=== PATIENT | male | born 1995 | race Caucasian/White ===

== ENCOUNTER 2016-04-28 20:45 | Emergency (ER) | payer OTHER ==
[2016-04-28] MEDS ORDERED: Cyclobenzaprine TAB* 10 MG PO ONE (22:20)
[2016-04-28] MEDS ORDERED: Ibuprofen TAB* 600 MG PO ONE (22:20)
--- NOTE | 2016-04-28 22:26 | UC ---
Hip/Pelvis Pain - HPI Summary HPI Summary: 21 male presents with girlfriend complaining of left hip pain that began approximately 5 weeks ago after snowboarding. Patient states since then he has been snowboarding and strength training and it has repeatedly been hurting him. He has tried icing/heating, taking OTC pain relievers, and topical agents without any relief. Lateral motions, abducting and squatting causes him the worst pain. Denies numbness, tingling, difficulty breathing, chest pain, saddle anesthesia, loss of bowel/bladder function, and pain in the left hip, right knee /foot or back. He states he has a teammate who is going through the same thing and was told if he "keeps using his hip it can turn into a hernia due to weak muscles". Denies blunt trauma however he does fall a few times when snowboarding on the snow. States he thinks he twisted it during snowboarding 5 weeks ago. - History Of Current Complaint Stated Complaint: LT HIP PAIN Time Seen by Provider: 04/28/16 22:04 Hx Obtained From: Patient Onset/Duration: Sudden Onset, Lasting Weeks, Still Present Severity Initially: Moderate Severity Currently: Moderate Location: Discrete At: - right hip, Radiates To: - some radiation in his groin and buttocks, sometimes up in his abdomen Character Of Pain: Sharp, Dull, Aching, Throbbing Aggravating Factor(s): Movement Alleviating Factor(s): Rest, Position, Cold, OTC Medications Associated Signs And Symptoms: Positive: Negative - Allergies/Home Medications Allergies/Adverse Reactions: Allergies Allergy/AdvReac Type Severity Reaction Status Date / Time No Known Allergies Allergy Verified 04/28/16 22:32 Home Medications: Home Medications Ibuprofen TAB* [Advil TAB*] 400 mg PO Q6H PRN 04/28/16 [History Confirmed ] PMH/Surg Hx/FS Hx/Imm Hx - Family History Known Family History: Positive: None Review of Systems Constitutional: Negative Skin: Negative Eyes: Negative ENT: Negative Respiratory: Negative Cardiovascular: Negative Gastrointestinal: Negative Genitourinary: Negative Motor: Negative Neurovascular: Negative Musculoskeletal: Arthralgia, Myalgia - right hip Neurological: Negative Psychological: Negative All Other Systems Reviewed And Are Negative: Yes Physical Exam Triage Information Reviewed: Yes Appearance: Well-Appearing, No Pain Distress, Well-Nourished Vital Signs Reviewed: Yes Eyes: Positive: Conjunctiva Clear Neck: Positive: Supple, Nontender Respiratory: Positive: Chest non-tender, Lungs clear, Normal breath sounds, No respiratory distress Cardiovascular: Positive: RRR, No Murmur, Pulses Normal - 2+, Brisk Capillary Refill - <2 seconds Abdominal Exam: Normal Musculoskeletal: Positive: Strength Intact - causes pain at right hip 5/5 b/l, ROM Intact - full ROM however does cause him pain. worst with abduction of right hip. points to area of tenderness on anterior/lateral right hip., No Edema - no eccymosis, no deformity, crepitus, or step-off noted. sensation intact and skin intact. able to move toes, knees and ankle. no tenderness on palpation. Neurological Exam: Normal Neurological: Positive: Other: - patellar reflexes normal and intact. Psychological Exam: Normal Skin Exam: Normal Hip Injury Course/Dx - Course Course Of Treatment: due to REINA and length of symptoms an x-ray was not needed at this time. patient will be given muscle relaxers and ibuprofen to take for the next 5 days and told to rest. referral to ortho for further mri imaging and evaluation. - Differential Dx/Diagnosis Differential Diagnosis/HQI/PQRI: Arthritis, Contusion, Sprain, Strain, Other - labral tear Provider Diagnoses: right hip sprain/strain Discharge - Discharge Plan Condition: Stable Disposition: HOME Prescriptions: Cyclobenzaprine TAB* [Flexeril TAB*] 10 mg PO DAILY #12 tab Ibuprofen TAB* [Motrin TAB* 600 MG] 600 mg PO Q6H PRN #25 tab PRN Reason: Pain Patient Education Materials: Hip Sprain (ED) Forms: *Gen. Provider Communication, *Physical Education Release Referrals: Bernardino Stafford MD [Medical Doctor] - Additional Instructions: Take medication as prescribed for the next 5-7 days or while symptoms persist. Do not drive while taking muscle relaxer and take ibuprofen with food. Continue using ice/ heat and topical agents as needed. REST the area and refrain from physical activity until released by orthopedics. If symptoms worsen or new symptoms begin please return to or make an appointment with your primary care doctor. Addendum entered and electronically signed by Olivia Cash PA 04/30/16 22: 23: Addendum Addendum: diagnosis: muscular strain of right hip Addendum entered and electronically signed by Olivia Cash PA 05/01/16 10: 32: UC Addendum Addendum: Error of diagnosis FINAL DIAGNOSIS: Muscle strain of LEFT hip Addendum entered and electronically signed by Olivia Cash PA 05/01/16 10: 36: UC Addendum Addendum: HISTORY OF CURRENT COMPLAINT: discrete pain at LEFT hip with radiation to groin and gluteals ROS: LEFT HIP arlthralgia, myalgia with radiation PHYSICAL EXAM: Entire PE is for LEFT hip, not the right hip
[2016-04-28 22:31] VITALS: BP 126/76
== END 2016-04-28 22:52 | disposition home or self-care (01) ==
LOC: UCCORT 20:45
DX: S76.012A Strain of muscle, fascia and tendon of left hip, initial encounter (principal); X58.XXXA Exposure to other specified factors, initial encounter; Y93.23 Activity, snow (alpine) (downhill) skiing, snowboarding, sledding, tobogganing and snow tubing; Y92.9 Unspecified place or not applicable
CPT/HCPCS: 99202; A9270-GY; G0463

== ENCOUNTER 2016-07-07 11:29 | Emergency (ER) | payer OTHER ==
[2016-07-07 11:42] VITALS: BP 120/91
--- NOTE | 2016-07-07 12:38 | UC ---
Throat Pain/Nasal Markell HPI - HPI Summary HPI Summary: 21 male presents with complaints of sinus congestion, nasal congestion, headache and productive cough that began approximately 4 weeks ago. Patient has been trying to treat it symptomatically with OTC medication, Mucinex and Advil cold and sinus, however has not had any relief. Last dose was around 8am this morning. Patient started to experience left ear pain that began today, where it feels like he has water in his ear. Admits to upset stomach for mucus. States cough is worse in the morning and productive with green mucus like sputum. Denies any fever/chills, difficulty breathing, SOB, and chest pain. Denies PMHx. - History of Current Complaint Chief Complaint: UCRespiratory Stated Complaint: SINUS CONGESTION COUGH LEFT EAR Time Seen by Provider: 07/07/16 12:19 Hx Obtained From: Patient Onset/Duration: Sudden Onset, Lasting Weeks, Worse Since Severity: Moderate Cough: Sputum Appears - green/mucus like Associated Signs & Symptoms: Positive: Sinus Discomfort, Nasal Discharge - Allergies/Home Medications Allergies/Adverse Reactions: Allergies Allergy/AdvReac Type Severity Reaction Status Date / Time No Known Allergies Allergy Verified 07/07/16 11:35 Home Medications: Home Medications Guaifenesin/Pseudo 600/60(NF) [Mucinex D 600/60 (NF)] 1 tab PO Q12H PRN [History Confirmed 07/07/16] PMH/Surg Hx/FS Hx/Imm Hx Endocrine History Of: Denies: Diabetes Cardiovascular History Of: Denies: Hypertension Respiratory History Of: Denies: Asthma - Surgical History Surgical History: None - Family History Known Family History: Positive: None - Social History Alcohol Use: Occasionally Substance Use Type: None Smoking Status (MU): Former Smoker When Did the Patient Quit Smoking/Using Tobacco: 3-4 YRS - Immunization History Vaccination Up to Date: Yes Review of Systems Constitutional: Negative Skin: Negative Eyes: Drainage - clear ENT: Ear Ache, Nasal Discharge Respiratory: Cough - productive Cardiovascular: Negative Gastrointestinal: Other - nausea intermittently from mucuc Motor: Negative Musculoskeletal: Negative Neurological: Headache All Other Systems Reviewed And Are Negative: Yes Physical Exam Triage Information Reviewed: Yes Appearance: Well-Appearing - sounds congested upon speaking, No Pain Distress, Well-Nourished Vital Signs: Initial Vital Signs Temp 98.9 F 07/07/16 11:37 Pulse 73 04/17/17 11:37 Resp 16 07/07/16 11:37 BP 120/91 07/07/16 11:37 Pulse Ox 99 07/07/16 11:37 Vital Signs Reviewed: Yes Eyes: Positive: Conjunctiva Clear. Negative: Conjunctiva Inflamed, Discharge ENT: Positive: Normal ENT inspection, Hearing grossly normal, Pharynx normal - ppost nasal drip noted, Nasal congestion, Nasal drainage, TMs normal. Negative : Tonsillar swelling, Tonsillar exudate, Trismus, Muffled/hoarse voice Dental: Positive: Percussion Tenderness @ - maxillary bilateral. Negative: Cervical Lymphadenopathy Neck: Positive: Supple, Nontender Respiratory: Positive: Chest non-tender, Lungs clear, Normal breath sounds, No respiratory distress, No accessory muscle use. Negative: Stridor, Wheezing Cardiovascular: Positive: RRR, No Murmur, Pulses Normal Abdominal Exam: Normal Abdomen Description: Positive: Nontender, Soft Bowel Sounds: Positive: Present Musculoskeletal: Positive: Strength Intact, ROM Intact, No Edema Neurological: Positive: Alert Psychological Exam: Normal Skin Exam: Normal Throat Pain/Nasal Course/Dx - Course Course Of Treatment: due to length of symptoms, failure of OTC symptomatic treatment and PE findings patient will be treated for sinusitis with an antibioitic at this time. Also recommended saline nasal spray. Prescribed flonase. Fluids, rest and OTC medications as needed. Recommend antihistamine to help with effusion behind TM and complaint of itchy/watery eyes. Aware of worsening signs and symptoms to watch out for. - Differential Dx/Diagnosis Differential Diagnosis/HQI/PQRI: Influenza, Otitis Media, Pharyngitis, Sinusitis , Tonsillitis, URI, Other Provider Diagnoses: Sinusitis, L ear pain Discharge - Discharge Plan Condition: Stable Disposition: HOME Prescriptions: Amoxicillin/Clavulanate TAB* [Augmentin TAB 875*] 875 mg PO BID #20 tab Fluticasone NASAL SPRAY 50MCG* [Flonase NASAL SPRAY 50MCG*] 2 spray BOTH NARES DAILY #1 btl Patient Education Materials: Sinusitis (ED) Referrals: Non Staff,Doctor [Primary Care Provider] - Additional Instructions: Take medications as prescribed until entire dose is finished even if symptoms improve. Recommend taking probiotic pill or eating estonian yogurt in between doses to help replenish normal swathi. Use nasal spray twice in the first day and then once daily while symptoms persist. Use saline nasal spray multiple times daily, not at the same time as the flonase. Take OTC Mucinex/Antihistamine/Advil as needed. Antihistamine helps dry up mucus and fluid behind eardrum. Drink plenty of fluids and get plenty of rest. If symptoms worsen or do not improve please return. Follow up with PCP.
== END 2016-07-07 12:45 | disposition home or self-care (01) ==
LOC: UCCORT 11:29
DX: J32.9 Chronic sinusitis, unspecified (principal); H92.02 Otalgia, left ear; Z87.891 Personal history of nicotine dependence
CPT/HCPCS: 99212; G0463

== ENCOUNTER 2016-09-26 09:34 | Emergency (ER) | payer OTHER ==
[2016-09-26 09:42] VITALS: BP 120/75
--- NOTE | 2016-09-26 10:11 | RAD ---
HISTORY: Tender lateral and medial malleoli status post inversion injury of the left ankle COMPARISONS: None VIEWS: 3, Frontal, lateral, and oblique views of the left ankle FINDINGS: BONE DENSITY: Normal. BONES: There is no displaced fracture. JOINTS: There is no arthropathy. ALIGNMENT: There is no dislocation. SOFT TISSUES: Unremarkable. OTHER FINDINGS: None. IMPRESSION: NO ACUTE OSSEOUS INJURY. IF SYMPTOMS PERSIST, RECOMMEND REPEAT IMAGING.
--- NOTE | 2016-09-26 10:53 | UC ---
Lower Extremity/Ankle HPI - HPI Summary HPI Summary: pt inverted left ankle when he stepped off the curb into a pot hole about 20 minutes prior to encounter. no other new sx. pt does have pre-existing hip and knee pain. - History of Current Complaint Chief Complaint: UCLowerExtremity Stated Complaint: LEFT ANKLE INJURY Time Seen by Provider: 09/26/16 09:43 Hx Obtained From: Patient Onset/Duration: Sudden Onset, Lasting Minutes, Still Present Severity Initially: Moderate Severity Currently: Moderate Pain Intensity: 6 Aggravating Factor(s): Standing, Ambulation Alleviating Factor(s): Rest, Elevation Able to Bear Weight: Yes - Allergies/Home Medications Allergies/Adverse Reactions: Allergies Allergy/AdvReac Type Severity Reaction Status Date / Time No Known Allergies Allergy Verified 09/26/16 09:41 Home Medications: Home Medications Nutritional Supplements [Phenylade Essential Drink] 1 pow PO DAILY 09/26/16 [ History Confirmed 09/26/16] PMH/Surg Hx/FS Hx/Imm Hx Previously Healthy: Yes - Surgical History Surgical History: None - Family History Known Family History: Negative: Cardiac Disease, Hypertension, Diabetes - Social History Alcohol Use: Daily Alcohol Amount: 2 beers Substance Use Type: None Smoking Status (MU): Former Smoker When Did the Patient Quit Smoking/Using Tobacco: 3-4 YRS - Immunization History Vaccination Up to Date: Yes Review of Systems Constitutional: Negative Skin: Negative Respiratory: Negative Cardiovascular: Negative Musculoskeletal: Arthralgia Neurological: Negative Psychological: Negative All Other Systems Reviewed And Are Negative: Yes Physical Exam Triage Information Reviewed: Yes Appearance: Well-Appearing, No Pain Distress, Well-Nourished Vital Signs: Initial Vital Signs Temp 98.7 F 09/26/16 09:37 Pulse 78 09/26/16 09:37 Resp 14 09/26/16 09:37 BP 120/75 09/26/16 09:37 Pulse Ox 100 09/26/16 09:37 Vital Signs Reviewed: Yes Eyes: Positive: Conjunctiva Clear. Negative: Discharge ENT: Positive: Hearing grossly normal. Negative: Muffled/hoarse voice Neck: Positive: Supple Respiratory: Positive: Lungs clear, Normal breath sounds, No respiratory distress, No accessory muscle use Cardiovascular: Positive: RRR, No Murmur Musculoskeletal Exam: Normal Neurological: Positive: Alert, Muscle Tone Normal Psychological: Positive: Age Appropriate Behavior Skin: Positive: Other Lower Extremity Course/Dx - Differential Dx/Diagnosis Differential Diagnosis/HQI/PQRI: Contusion, Fracture (Closed), Sprain Provider Diagnoses: ankle sprain Discharge - Discharge Plan Condition: Stable Disposition: HOME Patient Education Materials: Ankle Sprain (ED), Crutch Instructions (ED), Ankle Stirrup Splint (ED) Referrals: Non Staff,Doctor [Primary Care Provider] - (FOLLOW UP IN 5-7 DAYS IF NOT IMPROVING.)
== END 2016-09-26 10:52 | disposition home or self-care (01) ==
LOC: UCCORT 09:34
DX: S93.402A Sprain of unspecified ligament of left ankle, initial encounter (principal); W17.2XXA Fall into hole, initial encounter; Z87.891 Personal history of nicotine dependence
CPT/HCPCS: 99213; G0463

== ENCOUNTER 2017-07-08 13:45 | Emergency (ER) | payer OTHER ==
[2017-07-08 14:05] VITALS: BP 136/85
--- NOTE | 2017-07-08 14:42 | UC ---
Respiratory Complaint HPI - HPI Summary HPI Summary: 22 yo male with 3-4 day hx of nasal congestion/post nasal drip and sore throat no f/c no myalgias mild KHAN no n/v/d - History of Current Complaint Chief Complaint: UCRespiratory Stated Complaint: SORE THROAT Hx Obtained From: Patient Onset/Duration: Gradual Onset, Lasting Days Timing: Constant Severity Initially: Mild Severity Currently: Moderate Pain Intensity: 6 Pain Scale Used: 0-10 Numeric Character: Cough: Nonproductive Aggravating Factors: Nothing Alleviating Factors: Nothing Associated Signs And Symptoms: Positive: Nasal Congestion - Allergies/Home Medications Allergies/Adverse Reactions: Allergies Allergy/AdvReac Type Severity Reaction Status Date / Time No Known Allergies Allergy Verified 07/08/17 14:00 PMH/Surg Hx/FS Hx/Imm Hx Previously Healthy: Yes - Surgical History Surgical History: None - Family History Known Family History: Positive: None Negative: Cardiac Disease, Hypertension, Diabetes - Social History Alcohol Use: Weekly Alcohol Amount: weekends Substance Use Type: None Smoking Status (MU): Former Smoker When Did the Patient Quit Smoking/Using Tobacco: 3-4 YRS - Immunization History Vaccination Up to Date: Yes Review of Systems Constitutional: Chills, Fatigue Skin: Negative Eyes: Negative ENT: Sore Throat, Nasal Discharge, Sinus Congestion, Sinus Pain/Tenderness Respiratory: Cough Cardiovascular: Negative Gastrointestinal: Negative Genitourinary: Negative Motor: Negative Neurovascular: Negative Musculoskeletal: Negative Neurological: Negative Psychological: Negative Is Patient Immunocompromised?: No All Other Systems Reviewed And Are Negative: Yes Physical Exam Triage Information Reviewed: Yes Appearance: Well-Appearing, No Pain Distress, Well-Nourished Vital Signs: Initial Vital Signs Temp 98.6 F 07/08/17 14:01 Pulse 85 07/08/17 14:01 Resp 16 07/08/17 14:01 BP 136/85 07/08/17 14:01 Pulse Ox 97 07/08/17 14:01 Vital Signs Reviewed: Yes Eyes: Positive: Conjunctiva Clear ENT: Positive: Pharyngeal erythema, Nasal congestion Neck: Positive: Supple, Nontender, No Lymphadenopathy Respiratory: Positive: Normal breath sounds, No respiratory distress, No accessory muscle use Cardiovascular: Positive: RRR Musculoskeletal: Positive: ROM Intact, No Edema Neurological: Positive: Alert Psychological Exam: Normal Skin Exam: Normal UC Diagnostic Evaluation - Laboratory Pertinent Lab Values Are: WNL - strep (-) O2 Sat by Pulse Oximetry: 97 - normal/not hypoxic Respiratory Course/Dx - Differential Dx/Diagnosis Provider Diagnoses: viral URI Discharge - Sign-Out/Discharge Documenting (check all that apply): Discharge - Discharge Plan Condition: Stable Disposition: HOME Prescriptions: Fluticasone NASAL SPRAY 50MCG* [Flonase NASAL SPRAY 50MCG*] 2 spray BOTH NARES DAILY #1 btl Patient Education Materials: Pharyngitis (ED), Upper Respiratory Infection (ED) Referrals: Non Staff,Doctor [Primary Care Provider] - Additional Instructions: aleve 1-2 twice daily recheck in 3-4 days if not better recheck sooner if symptoms worsen - Billing Disposition and Condition Condition: STABLE Disposition: HOME
== END 2017-07-08 14:48 | disposition home or self-care (01) ==
LOC: UCCORT 13:45
DX: J06.9 Acute upper respiratory infection, unspecified (principal); Z87.891 Personal history of nicotine dependence
CPT/HCPCS: 87651; 99212; G0463

== ENCOUNTER 2017-09-28 13:24 | Emergency (ER) | payer OTHER ==
[2017-09-28 14:00] VITALS: BP 121/71
--- NOTE | 2017-09-28 14:23 | UC ---
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 Pt states he has Hx GERD and has been taking OTC omeprazole with little improvement. Pt began new protein drink in the last 2 weeks and noticed worsening throat and "stomach" discomfort after drinking the protein drink. - History of Current Complaint Stated Complaint: ACID REFLUX Time Seen by Provider: 09/28/17 13:39 Hx Obtained From: Patient Onset/Duration: Gradual Onset, Lasting Weeks Timing: Intermittent Episodes Lasting: Severity Initially: Mild Severity Currently: Moderate Pain Intensity: 7 Location: Epigastric Radiates: No Character: Burning, Colicy Aggravating Factor(s): Food Alleviating Factor(s): Other - NPO - Risk Factors Testicular Torsion: Negative Cardiac Risk Factors: Negative - Allergies/Home Medications Allergies/Adverse Reactions: Allergies Allergy/AdvReac Type Severity Reaction Status Date / Time No Known Allergies Allergy Verified 09/28/17 13:57 Home Medications: Home Medications Protein Drinks 1 dose PO QID 09/28/17 [History Confirmed 09/28/17] PMH/Surg Hx/FS Hx/Imm Hx Previously Healthy: Yes - PKU - Surgical History Surgical History: None - Family History Known Family History: Positive: None Negative: Cardiac Disease, Hypertension, Diabetes - Social History Occupation: Student Lives: With Family Alcohol Use: Occasionally Alcohol Amount: weekends Substance Use Type: None Smoking Status (MU): Former Smoker Type: Smokeless Tobacco Have You Smoked in the Last Year: No When Did the Patient Quit Smoking/Using Tobacco: 3-4 YRS - Immunization History Vaccination Up to Date: Yes Review of Systems Constitutional: Negative Skin: Negative Eyes: Negative ENT: Sore Throat Respiratory: Negative Cardiovascular: Chest Pain Gastrointestinal: Abdominal Pain Genitourinary: Negative Motor: Negative Neurovascular: Negative Musculoskeletal: Negative Neurological: Negative Psychological: Negative Is Patient Immunocompromised?: No All Other Systems Reviewed And Are Negative: Yes Physical Exam Triage Information Reviewed: Yes Appearance: Well-Appearing Vital Signs: Initial Vital Signs Temp 98.9 F 09/28/17 13:49 Pulse 70 09/28/17 13:49 Resp 16 09/28/17 13:49 BP 121/71 09/28/17 13:49 Pulse Ox 100 09/28/17 13:49 Vital Signs Reviewed: Yes Eye Exam: Normal ENT Exam: Normal Dental Exam: Normal Neck exam: Normal Respiratory Exam: Normal Cardiovascular Exam: Normal Abdominal Exam: Normal Musculoskeletal Exam: Normal Neurological Exam: Normal Psychological Exam: Normal Skin Exam: Normal Abd Pain Male Course/Dx - Course Course Of Treatment: I discussed with the pt the need to follow up with PCP and provider who prescribed protein drinks to discuss adverse response. Also, discussed need to follow up with GI provider possibly for further testing and evaluation. Pt verbalized understanding and agreed to plan of care. - Differential Dx/Clinical Impression Provider Diagnoses: GERD Discharge - Sign-Out/Discharge Documenting (check all that apply): Discharge/Admit/Transfer - Discharge Plan Condition: Stable Disposition: HOME Prescriptions: Omeprazole CAP* [Prilosec CAP* 20 MG] 40 mg PO DAILY #60 cap. Patient Education Materials: Gastroesophageal Reflux Disease (DC) Referrals: Non Staff,Doctor [Medical Doctor] - Additional Instructions: Please follow up with your PCP as soon as possible for further evaluation and treatment. - Billing Disposition and Condition Condition: STABLE Disposition: Home
== END 2017-09-28 14:33 | disposition home or self-care (01) ==
LOC: UCCORT 13:24
DX: K21.9 Gastro-esophageal reflux disease without esophagitis (principal)
CPT/HCPCS: 99212; G0463

== ENCOUNTER 2018-02-17 11:40 | Emergency (ER) | payer OTHER ==
[2018-02-17 12:07] VITALS: BP 128/76
--- NOTE | 2018-02-17 12:22 | UC ---
Throat Pain/Nasal Markell HPI - HPI Summary HPI Summary: Pt presents with 3 weeks sinus congestion. Pt states sx had improved, but got congested again this week. green sputum, + PND, ear fullness. pt with h/o of recurrent ifections - feels similar. No fever, chills + fatigue No n/v/d + OTC decongestants without resolution Pt's medications reviewed this visit - History of Current Complaint Chief Complaint: UCGeneralIllness Stated Complaint: SINUSES Time Seen by Provider: 02/17/18 12:22 Hx Obtained From: Patient Pain Intensity: 0 - Allergies/Home Medications Allergies/Adverse Reactions: Allergies Allergy/AdvReac Type Severity Reaction Status Date / Time No Known Allergies Allergy Verified 09/28/17 13:57 Home Medications: Home Medications Ibuprofen/Pseudoephedrine HCl [Advil Cold & Sinus] 1 cap PO ONCE 02/17/18 [ History Confirmed 02/17/18] PMH/Surg Hx/FS Hx/Imm Hx Previously Healthy: Yes - Surgical History Surgical History: None - Family History Known Family History: Positive: None Negative: Cardiac Disease, Hypertension, Diabetes - Social History Alcohol Use: Occasionally Alcohol Amount: weekends Substance Use Type: None Smoking Status (MU): Former Smoker Type: Smokeless Tobacco Have You Smoked in the Last Year: No When Did the Patient Quit Smoking/Using Tobacco: 3-4 YRS - Immunization History Vaccination Up to Date: Yes Review of Systems All Other Systems Reviewed And Are Negative: Yes Constitutional: Positive: Fatigue ENT: Positive: Ear Ache, Nasal Discharge, Sinus Congestion, Sinus Pain/ Tenderness Respiratory: Positive: Negative Physical Exam - Summary Physical Exam Summary: Vital Signs Reviewed: Yes A+Ox3, congested, cough Eyes: Conjunctiva Clear, JONAS. EOM intact and full ENT: Hearing grossly normal fluid b/l R>L, no erythema, turbinates inflammed and boggy, + thick PND, + TTP max sinuses R>L mild frontal discomfort, mmoist , uvula midline, no exudate, no erythema Neck: Positive: Supple Respiratory: Positive: coarse cough, diffuse wheeze + BS throughout no increased WOB, no accessory muscles Cardiovascular: RRR nl s1, s2 no m/r CBT <2 sec abd soft + BS nt/nd no guarding, no distension Musculoskeletal Exam: RANDHAWA x 4 without difficulty Strength Intact, ROM Intact Neurological: Positive: Alert, + sensation throughout Psychological: Positive: Normal Response To Family Skin: Positive: no rash, no ecchymosis Triage Information Reviewed: Yes Vital Signs: Initial Vital Signs Temp 98.3 F 02/17/18 12:02 Pulse 78 02/17/18 12:02 Resp 16 02/17/18 12:02 BP 128/76 02/17/18 12:02 Pulse Ox 98 02/17/18 12:02 Throat Pain/Nasal Course/Dx - Course Course Of Treatment: Pt with progressive sinus congestion and pressure pt with 3 weeks sx. VSS. exam c/w rhinosinusitis. abx. flonase. humidfy air. hydrate. humidify. secretion precaution - Differential Dx/Diagnosis Provider Diagnosis: Rhinosinusitis Discharge - Sign-Out/Discharge Documenting (check all that apply): Patient Departure All imaging exams completed and their final reports reviewed: No Studies - Discharge Plan Condition: Stable Disposition: HOME Prescriptions: Amoxicillin PO (*) [Amoxicillin 875 MG (*)] 875 mg PO BID #20 tab Fluticasone NASAL SPRAY 50MCG* [Flonase NASAL SPRAY 50MCG*] 2 spray BOTH NARES DAILY #1 btl Patient Education Materials: Rhinosinusitis (ED) Referrals: No Primary Care Phys,NOPCP [Primary Care Provider] - Additional Instructions: - Stay well hydrated. Drink plenty of non-alcoholic, non-caffinated beverages. - Alternate ibuprofen (Advil, Motrin) 600mg and Tylenol every 3 hours for pain or fever. Take with food. Do NOT take for more than 4-5 days. - These infections are spread by secretions - do NOT share eating or drinking utensils - clean items you share with other people such as cell phones, computer mouse, TV remote, computer tablets,etc. Once you have been antibiotics for 2 days, change your toothbrush and your pillowcase. - get plenty of restful sleep - humidify the air in the room where you sleep - boil water, run a hot steam shower, vaporizer, cups of water by heat register - okay to take over the counter decongestant and cough medication - use nasal spray as prescribed - contact your doctor or return with questions or concerns - Billing Disposition and Condition Condition: STABLE Disposition: Home
== END 2018-02-17 12:39 | disposition home or self-care (01) ==
LOC: UCCORT 11:40
DX: J32.9 Chronic sinusitis, unspecified (principal); Z87.891 Personal history of nicotine dependence
CPT/HCPCS: 99212; G0463

== ENCOUNTER 2018-04-08 11:37 | Emergency (ER) | payer OTHER ==
[2018-04-08 12:52] VITALS: BP 130/73
--- NOTE | 2018-04-08 13:12 | UC ---
Back Pain HPI - HPI Summary HPI Summary: left lower back pain x 1 day pain is mild 3 out of 10 , no radiation worse with movements , better with rest, mild dysuria , no abdominal pain, no nausea or vomiting, no urinary frequency , no urgency , no flank pain - History of Current Complaint Chief Complaint: UCGeneralIllness Stated Complaint: BACK PAIN URINARY Time Seen by Provider: 04/08/18 12:56 Hx Obtained From: Patient Onset/Duration: Gradual Onset, Lasting Days - 1, Still Present Timing: Constant Severity Initially: Mild Severity Currently: Mild Pain Intensity: 5 Back Pain: Is Discrete @ - left lower back Character: Aching Aggravating Factor(s): Movement Alleviating Factor(s): Rest Associated Signs And Symptoms: Negative: Swelling, Redness, Bruising, Fever, Weakness, Numbness, Abdominal Pain, Flank Pain, Bladder Incontinence, Bowel Incontinence, Weight Loss - Allergies/Home Medications Allergies/Adverse Reactions: Allergies Allergy/AdvReac Type Severity Reaction Status Date / Time No Known Allergies Allergy Verified 04/08/18 12:46 PMH/Surg Hx/FS Hx/Imm Hx Previously Healthy: Yes - Surgical History Surgical History: None - Family History Known Family History: Positive: None Negative: Cardiac Disease, Hypertension, Diabetes - Social History Alcohol Use: Occasionally Alcohol Amount: weekends Substance Use Type: None Smoking Status (MU): Former Smoker Type: Smokeless Tobacco Have You Smoked in the Last Year: No When Did the Patient Quit Smoking/Using Tobacco: 3-4 YRS - Immunization History Vaccination Up to Date: Yes Review of Systems All Other Systems Reviewed And Are Negative: Yes Constitutional: Positive: Negative Skin: Positive: Negative Eyes: Positive: Negative ENT: Positive: Negative Respiratory: Positive: Negative Genitourinary: Positive: Dysuria Is Patient Immunocompromised?: No Physical Exam Triage Information Reviewed: Yes Appearance: Well-Appearing, No Pain Distress, Well-Nourished Vital Signs: Initial Vital Signs Temp 99.1 F 04/08/18 12:47 Pulse 71 04/08/18 12:47 Resp 15 04/08/18 12:47 BP 130/73 04/08/18 12:47 Pulse Ox 99 04/08/18 12:47 Vital Signs Reviewed: Yes Eye Exam: Normal Eyes: Positive: Conjunctiva Clear ENT: Positive: Normal ENT inspection, Hearing grossly normal, Pharynx normal Neck: Positive: Supple, Nontender, No Lymphadenopathy Respiratory: Positive: Chest non-tender, Lungs clear, Normal breath sounds Cardiovascular: Positive: RRR, No Murmur, Pulses Normal Abdominal Exam: Normal Abdomen Description: Positive: Nontender, Soft. Negative: CVA Tenderness (R), CVA Tenderness (L), Distended, Guarding Bowel Sounds: Positive: Present Musculoskeletal: Positive: Other: - lower back : no swelling, no erythema, no tenderness, good ROM on flexion and extension Back Pain Course/Dx - Differential Dx/Diagnosis Provider Diagnosis: Strain of fascia of lower back Discharge - Sign-Out/Discharge Documenting (check all that apply): Patient Departure All imaging exams completed and their final reports reviewed: No Studies - Discharge Plan Condition: Stable Disposition: HOME Patient Education Materials: Low Back Strain (ED) Referrals: No Primary Care Phys,NOPCP [Primary Care Provider] - If Needed - Billing Disposition and Condition Condition: STABLE Disposition: Home
== END 2018-04-08 13:12 | disposition home or self-care (01) ==
LOC: UCCORT 11:37
DX: S39.012A Strain of muscle, fascia and tendon of lower back, initial encounter (principal); X58.XXXA Exposure to other specified factors, initial encounter; Y92.9 Unspecified place or not applicable; Z87.891 Personal history of nicotine dependence
CPT/HCPCS: 81003; 99211; G0463

== ENCOUNTER 2019-01-06 09:47 | Emergency (ER) | payer OTHER ==
[2019-01-06 10:29] VITALS: BP 131/88
--- NOTE | 2019-01-06 10:49 | UC ---
Throat Pain/Nasal Markell HPI - HPI Summary HPI Summary: Patient is a 23yo male presenting with nasal congestion and sinus tenderness x10 days. States he was not going to come in but the pressure in his head is worsening. States he has tooth pain now. Notes intermittent headaches. Denies ear pain, sore throat, and cough. Denies SOB and wheezing. Denies fever and chills. Denies n/v/d. Patient notes history of sinusitis that has been treated with amoxicillin. - History of Current Complaint Chief Complaint: UCGeneralIllness Stated Complaint: SINUS COMPLAINT Hx Obtained From: Patient Pain Intensity: 0 - Allergies/Home Medications Allergies/Adverse Reactions: Allergies Allergy/AdvReac Type Severity Reaction Status Date / Time No Known Allergies Allergy Verified 01/06/19 10:30 Home Medications: Home Medications guaiFENesin [Mucinex] 1,200 mg PO TID 01/06/19 [History Confirmed 01/06/19] PMH/Surg Hx/FS Hx/Imm Hx Previously Healthy: Yes - Surgical History Surgical History: None - Family History Known Family History: Positive: None Negative: Cardiac Disease, Hypertension, Diabetes - Social History Alcohol Use: Weekly Alcohol Amount: weekends Substance Use Type: None Smoking Status (MU): Former Smoker Type: Smokeless Tobacco Have You Smoked in the Last Year: No When Did the Patient Quit Smoking/Using Tobacco: 3-4 YRS - Immunization History Vaccination Up to Date: Yes Review of Systems All Other Systems Reviewed And Are Negative: Yes Constitutional: Positive: Negative Eyes: Positive: Negative ENT: Positive: Sinus Congestion, Sinus Pain/Tenderness. Negative: Sore Throat, Ear Ache, Nasal Discharge Respiratory: Positive: Negative Cardiovascular: Positive: Negative Gastrointestinal: Positive: Negative Musculoskeletal: Positive: Negative Neurological: Positive: Headache Physical Exam Triage Information Reviewed: Yes Appearance: Well-Appearing, No Pain Distress, Well-Nourished Vital Signs: Initial Vital Signs Temp 97.4 F 01/06/19 10:23 Pulse 71 01/06/19 10:23 Resp 18 01/06/19 10:23 BP 131/88 01/06/19 10:23 Pulse Ox 99 01/06/19 10:23 Eyes: Positive: Conjunctiva Clear ENT: Positive: Hearing grossly normal, Pharynx normal, Nasal congestion, Nasal drainage, TMs normal, Sinus tenderness - frontal and maxillary, Uvula midline. Negative: Pharyngeal erythema, TM bulging, TM dull, TM red, Tonsillar swelling, Tonsillar exudate Dental Exam: Normal Neck exam: Normal Neck: Positive: Nontender, No Lymphadenopathy Respiratory Exam: Normal Respiratory: Positive: Lungs clear, Normal breath sounds, No respiratory distress Cardiovascular Exam: Normal Cardiovascular: Positive: RRR Neurological: Positive: Alert Psychological: Positive: Age Appropriate Behavior Throat Pain/Nasal Course/Dx - Course Course Of Treatment: I treated the patient with amoxicillin and fluticasone nasal spray for bacterial sinusitis. Patient states this has worked in the past for him. Instructed him to follow up with PCP or [facility] if symptoms persist. Patient voiced understanding and agreed to the treatment plan. - Differential Dx/Diagnosis Provider Diagnosis: Acute bacterial sinusitis Discharge ED - Sign-Out/Discharge Documenting (check all that apply): Patient Departure All imaging exams completed and their final reports reviewed: No Studies - Discharge Plan Condition: Stable Disposition: HOME Prescriptions: Amoxicillin PO (*) [Amoxicillin 500 MG CAP*] 500 mg PO TID #21 cap Fluticasone NASAL SPRAY 50MCG* [Flonase NASAL SPRAY 50MCG*] 2 spray BOTH NARES DAILY PRN #1 btl PRN Reason: Congestion Patient Education Materials: Sinusitis (ED) Referrals: [facility] [Outside] - If Needed Additional Instructions: As discussed, take Amoxicillin for the treatment of your sinusitis. You may use the nasal spray as directed for symptomatic relief. You may take ibuprofen as directed for pain relief. Get plenty of rest and fluids. Follow up with your primary care doctor or the [facility] listed below if your symptoms worsen or do not resolve within 7 days. - Billing Disposition and Condition Condition: STABLE Disposition: Home
== END 2019-01-06 10:59 | disposition home or self-care (01) ==
LOC: UCCORT 09:47
DX: J01.90 Acute sinusitis, unspecified (principal); Z87.891 Personal history of nicotine dependence
CPT/HCPCS: 99211; 99212; G0463

== ENCOUNTER 2019-01-19 14:11 | Emergency (ER) | payer OTHER ==
[2019-01-19 16:51] LABS: Influenza A Molecular NEGATIVE (Negative); Influenza B Molecular NEGATIVE (Negative)
[2019-01-19 17:20] VITALS: BP 127/78
--- NOTE | 2019-01-19 17:29 | UC ---
UC General HPI - HPI Summary HPI Summary: 23-year-old male comes in with chief complaint of bodyaches and feeling ill and diarrhea. 3 days ago woke up feeling chilled and with generalized body aches. He did improve some and then he worked out in the gym and he started feeling ill again. In the last day is developed watery diarrhea. He does get abdominal cramping prior to the diarrhea balance he has diarrhea cramping goes away. Still getting some chills. Did not see any blood in stool. He was on antibiotics about 2 weeks ago for a sinus infection. At this time the sinuses are clear no sinus pressure no sore throat no cough or chest congestion. No known tick bites. - History of Current Complaint Chief Complaint: UCGeneralIllness Stated Complaint: FATIGUE/BODY ACHES/HOT AND COLD FLASHES Time Seen by Provider: 01/19/19 16:29 Pain Intensity: 8 - Allergy/Home Medications Allergies/Adverse Reactions: Allergies Allergy/AdvReac Type Severity Reaction Status Date / Time No Known Allergies Allergy Verified 01/19/19 15:15 Home Medications: Home Medications NK [No Home Medications Reported] 01/19/19 [History Confirmed 01/19/19] PMH/Surg Hx/FS Hx/Imm Hx Previously Healthy: Yes - Surgical History Surgical History: None - Family History Known Family History: Positive: None Negative: Cardiac Disease, Hypertension, Diabetes - Social History Alcohol Use: Weekly Alcohol Amount: weekends Substance Use Type: None Smoking Status (MU): Former Smoker Type: Smokeless Tobacco Have You Smoked in the Last Year: No When Did the Patient Quit Smoking/Using Tobacco: 3-4 YRS - Immunization History Vaccination Up to Date: Yes Review of Systems All Other Systems Reviewed And Are Negative: Yes Constitutional: Positive: Chills, Other - SEE HPI Skin: Positive: Negative Eyes: Positive: Negative ENT: Positive: Other - SEE HPI Respiratory: Positive: Negative Cardiovascular: Positive: Negative Gastrointestinal: Positive: Abdominal Pain, Diarrhea Motor: Positive: Negative Neurovascular: Positive: Negative Musculoskeletal: Positive: Myalgia Neurological: Positive: Negative Psychological: Positive: Negative Is Patient Immunocompromised?: No Physical Exam Triage Information Reviewed: Yes Appearance: No Pain Distress, Well-Nourished, Ill-Appearing - MILD Vital Signs: Initial Vital Signs Temp 98.2 F 01/19/19 15:10 Pulse 96 10/30/19 15:10 Resp 16 01/19/19 15:10 BP 122/68 01/19/19 15:10 Pulse Ox 100 01/19/19 15:10 Vital Signs Reviewed: Yes Eye Exam: Normal Eyes: Positive: Conjunctiva Clear ENT: Positive: Pharynx normal, TMs normal Neck: Positive: Supple Respiratory: Positive: Lungs clear, Normal breath sounds, No respiratory distress Cardiovascular: Positive: RRR Abdomen Description: Positive: Nontender, Soft Musculoskeletal: Positive: Strength Intact, ROM Intact Neurological: Positive: Alert, Muscle Tone Normal Psychological: Positive: Age Appropriate Behavior Skin Exam: Normal Course/Dx - Course Course Of Treatment: Influenza negative here in clinic. Patient is symptoms are similar to influenza and that he has muscle aches without runny nose or sore throat or cough or chest congestion. Denies any recent tick bites. He was on antibiotics recently and with the diarrhea the possibility of C. difficile exists. Abdomen is nontender to palpation and the patient has no fever here. Patient sent home with a stool sample kit to treat symptomatically with some ibuprofen [id number] medications. We discussed that if he got worse with pain blood in the stool fevers or any other concerns he needs further evaluation emergency department. - Diagnoses Provider Diagnosis: Diarrhea, Influenza-like illness Discharge ED - Sign-Out/Discharge Documenting (check all that apply): Patient Departure All imaging exams completed and their final reports reviewed: No Studies - Discharge Plan Condition: Stable Disposition: HOME Patient Education Materials: Acute Diarrhea (ED), Musculoskeletal Pain (ED) Referrals: [facility] [place] [facility] [place]Outside] Additional Instructions: FOLLOW UP WITH YOUR DOCTOR IF NOT COMPLETELY IMPROVED. GO TO THE EMERGENCY DEPARTMENT IF NOT IMPROVING OR YOUR CONDITION WORSENS; FEVER , PAIN, YOU FEEL ILL, DEHYDRATION, ABDOMINAL PAIN, BLOOD IN YOUR STOOL OR ANY QUESTIONS OR CONCERNS. - Billing Disposition and Condition Condition: STABLE Disposition: Home
== END 2019-01-19 17:36 | disposition home or self-care (01) ==
LOC: UCCORT 14:11
DX: R19.7 Diarrhea, unspecified (principal); R53.83 Other fatigue; R10.9 Unspecified abdominal pain; R68.83 Chills (without fever); M79.10 Myalgia, unspecified site; Z87.891 Personal history of nicotine dependence
CPT/HCPCS: 99211; G0463

== ENCOUNTER 2019-03-02 12:02 | Emergency (ER) | payer OTHER ==
[2019-03-02 12:31] VITALS: BP 128/79
--- NOTE | 2019-03-02 12:41 | UC ---
Ear Complaint HPI - HPI Summary HPI Summary: left ear discomfort x 1 day woke up with ringing in his left ear, mild pain , plugged feeling denies any trauma, no cold symptoms, no sinus pain - History of Current Complaint Chief Complaint: UCEar Stated Complaint: RINGING IN LEFT EAR Time Seen by Provider: 03/02/19 12:32 Hx Obtained From: Patient Onset/Duration: Sudden Onset, Lasting Days - 1, Still Present Severity Initially: Moderate Severity Currently: Moderate Pain Intensity: 6 Aggravating Factors: Nothing Alleviating Factors: Nothing Associated Signs/Symptoms: Negative: Discharge, Hearing Loss, Foreign Body Sensation, Trauma to Ear, Swelling @, URI Symptoms - Allergies/Home Medications Allergies/Adverse Reactions: Allergies Allergy/AdvReac Type Severity Reaction Status Date / Time No Known Allergies Allergy Verified 03/02/19 12:27 PMH/Surg Hx/FS Hx/Imm Hx Previously Healthy: Yes - Surgical History Surgical History: None - Family History Known Family History: Positive: None Negative: Cardiac Disease, Hypertension, Diabetes - Social History Alcohol Use: Weekly Alcohol Amount: weekends Substance Use Type: None Smoking Status (MU): Former Smoker Type: Smokeless Tobacco Have You Smoked in the Last Year: No When Did the Patient Quit Smoking/Using Tobacco: 3-4 YRS - Immunization History Vaccination Up to Date: Yes Review of Systems All Other Systems Reviewed And Are Negative: Yes Constitutional: Positive: Negative Skin: Positive: Negative Eyes: Positive: Negative ENT: Positive: Ear Ache. Negative: Sore Throat, Nasal Discharge, Sinus Pain/ Tenderness Respiratory: Positive: Negative Is Patient Immunocompromised?: No Physical Exam Triage Information Reviewed: Yes Appearance: Well-Appearing, No Pain Distress, Well-Nourished Vital Signs: Initial Vital Signs Temp 98.2 F 03/02/19 12:26 Pulse 80 03/02/19 12:26 Resp 16 03/02/19 12:26 BP 128/79 03/02/19 12:26 Pulse Ox 99 03/02/19 12:26 Vital Signs Reviewed: Yes Eye Exam: Normal Eyes: Positive: Conjunctiva Clear ENT: Positive: Normal ENT inspection, Hearing grossly normal, Pharynx normal, TMs normal. Negative: TM bulging, TM dull, TM red Neck: Positive: Supple, Nontender, No Lymphadenopathy Respiratory: Positive: Chest non-tender, Lungs clear, Normal breath sounds Cardiovascular: Positive: RRR, No Murmur, Pulses Normal Skin Exam: Normal Ear Complaint Course/Dx - Differential Dx/Diagnosis Provider Diagnosis: Eustachian tube dysfunction Discharge ED - Sign-Out/Discharge Documenting (check all that apply): Patient Departure All imaging exams completed and their final reports reviewed: No Studies - Discharge Plan Condition: Stable Disposition: HOME Patient Education Materials: Barotrauma (ED) Referrals: No Primary Care Phys,NOPCP [Primary Care Provider] - If Needed Additional Instructions: normal exam of your ears , symptoms might be due to pressure behind your ears / Eustachian tube dysfunction may try Flonase otc nasal spray daily follow up as needed - Billing Disposition and Condition Condition: STABLE Disposition: Home
== END 2019-03-02 12:43 | disposition home or self-care (01) ==
LOC: UCCORT 12:02
DX: H69.92 Unspecified Eustachian tube disorder, left ear (principal); Z87.891 Personal history of nicotine dependence
CPT/HCPCS: 99211; G0463

== ENCOUNTER 2019-03-22 14:55 | Emergency (ER) | payer OTHER ==
[2019-03-22 15:11] VITALS: BP 116/82
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
== END 2019-03-22 15:30 | disposition home or self-care (01) ==
LOC: UCCORT 14:55
DX: T23.132A Burn of first degree of multiple left fingers (nail), not including thumb, initial encounter (principal); Z87.891 Personal history of nicotine dependence; T31.0 Burns involving less than 10% of body surface; X12.XXXA Contact with other hot fluids, initial encounter; Y92.9 Unspecified place or not applicable
CPT/HCPCS: 16020; 99211; G0463